=== PATIENT | male | born 1950 | race American Indian/Alaskan Native ===

== ENCOUNTER 2016-12-11 11:21 | Emergency (ER) | payer MEDICAID ==
[2016-12-11 11:45] VITALS: BP 130/71
--- NOTE | 2016-12-11 16:12 | XRay Report ---
FINAL REPORT PROCEDURE: Left shoulder. TECHNIQUE: Three views. HISTORY: Shoulder injury. COMPARISON: No prior studies are available for comparison. FINDINGS: The bones appear intact without fracture or dislocation. The joint spaces appear normal. The soft tissues are unremarkable. IMPRESSION: Normal study.
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
== END 2016-12-11 16:57 | disposition home or self-care (01) ==
LOC: ED 11:21
DX: M25.512 Pain in left shoulder (principal); M62.838 Other muscle spasm; F17.200 Nicotine dependence, unspecified, uncomplicated

== ENCOUNTER 2020-11-16 12:44 | Inpatient (IN) | payer MEDICARE, MEDICAID ==
[2020-11-16] MEDS ORDERED: diphenhydrAMINE 50 MG/ML VIAL IV ONE (16:18)
[2020-11-16] MEDS ORDERED: METOCLOPRAMIDE 10 MG/2 ML INJ IV ONE (16:18)
--- NOTE | 2020-11-16 17:52 | Emergency Department Report ---
ED Abdominal Pain HPI - General Chief Complaint: Abdominal Pain Stated Complaint: PAIN Time Seen by Provider: 11/16/20 16:17 Source: patient Mode of arrival: Ambulatory Limitations: No Limitations - History of Present Illness Initial Comments: This is a 70-year-old male nontoxic, well nourished in appearance, no acute signs of distress presents to the ED with c/o of nausea, constipation, dysuria, unable to urinate, and left flank pain x several days. Stated has radiation to left upper abdomen area. Patient denies any vomiting. Patient describes flank/abdomen pain as cramping and aching with level of 8/10. Patient denies chest pain, short of breath, fever, hemoptysis, blood in stool, chills, headache, stiff neck, numbness or tingling. Patient denies any diarrhea. Denies any blood in stool. Patient denies any recent travels. Patient denies any allergies. MD Complaint: abdominal pain, flank pain -: days(s) Location: LLQ, L flank Radiation: none Migration to: no migration Severity: mild Severity scale (0 -10): 8 Quality: aching Consistency: constant Improves With: nothing Worsens With: nothing Associated Symptoms: nausea, constipation, dysuria. denies: vomiting, diarrhea, fever, chills, hematemesis, hematochezia, melena, hematuria, anorexia, syncope - Related Data Previous Rx's Medication Instructions Recorded Last Taken Type Ibuprofen 600 mg PO TID PRN #15 tablet 12/11/16 Unknown Rx methOCARBAMOL [Robaxin TAB] 500 mg PO Q6H PRN #20 tablet 12/11/16 Unknown Rx Erythromycin [Erythromycin Ophth 1 applic OS 6XD #3.5 g 03/02/18 Unknown Rx Oint] Allergies Allergy/AdvReac Type Severity Reaction Status Date / Time No Known Allergies Allergy Verified 12/11/16 11:46 ED Review of Systems ROS: Stated complaint: PAIN Other details as noted in HPI Comment: All other systems reviewed and negative Constitutional: denies: chills, fever Eyes: denies: eye pain, eye discharge, vision change ENT: denies: ear pain, throat pain Respiratory: denies: cough, shortness of breath, wheezing Cardiovascular: denies: chest pain, palpitations Endocrine: no symptoms reported Gastrointestinal: nausea, constipation. denies: abdominal pain, vomiting, diarrhea, hematemesis, melena, hematochezia Genitourinary: denies: urgency, dysuria Musculoskeletal: denies: back pain, joint swelling, arthralgia Skin: denies: rash, lesions Neurological: denies: headache, weakness, paresthesias Psychiatric: denies: anxiety, depression Hematological/Lymphatic: denies: easy bleeding, easy bruising ED Past Medical Hx - Past Medical History Previous Medical History?: No Additional medical history: deniesc - Surgical History Past Surgical History?: Yes Additional Surgical History: left leg - Social History Smoking Status: Never Smoker Substance Use Type: None - Medications Home Medications: Home Medications Medication Instructions Recorded Confirmed Last Taken Type Ibuprofen 600 mg PO TID PRN #15 tablet 12/11/16 Unknown Rx methOCARBAMOL [Robaxin TAB] 500 mg PO Q6H PRN #20 tablet 12/11/16 Unknown Rx Erythromycin [Erythromycin Ophth 1 applic OS 6XD #3.5 g 03/02/18 Unknown Rx Oint] ED Physical Exam - General Limitations: No Limitations General appearance: alert, in no apparent distress - Head Head exam: Present: atraumatic, normocephalic - Eye Eye exam: Present: normal appearance - ENT ENT exam: Present: normal exam - Neck Neck exam: Present: normal inspection, full ROM. Absent: lymphadenopathy - Respiratory Respiratory exam: Present: normal lung sounds bilaterally. Absent: respiratory distress, wheezes, rales, rhonchi, stridor, chest wall tenderness, accessory muscle use, decreased breath sounds, prolonged expiratory - Cardiovascular Cardiovascular Exam: Present: regular rate, normal rhythm, normal heart sounds. Absent: bradycardia, tachycardia, irregular rhythm, systolic murmur, diastolic murmur, rubs, gallop - GI/Abdominal GI/Abdominal exam: Present: distended, tenderness (LUQ), normal bowel sounds. Absent: guarding, rebound, rigid - Extremities Exam Extremities exam: Present: normal inspection, full ROM, normal capillary refill. Absent: tenderness - Back Exam Back exam: Present: normal inspection, full ROM, CVA tenderness (L). Absent: tenderness, CVA tenderness (R), muscle spasm, paraspinal tenderness, vertebral tenderness, rash noted - Neurological Exam Neurological exam: Present: alert, oriented X3, normal gait - Psychiatric Psychiatric exam: Present: normal affect, normal mood - Skin Skin exam: Present: warm, dry, intact, normal color. Absent: rash ED Course Vital Signs 11/16/20 13:59 Temperature 98.0 F Pulse Rate 66 Respiratory 18 Rate Blood Pressure 125/70 O2 Sat by Pulse 98 Oximetry - Reevaluation(s) Reevaluation #1: 11/16/20 17:52 Patient is speaking in full sentences with no signs of distress noted. Reevaluation #2: 11/16/20 17:53 Patient stated had a bowel movement and described it as "large" during ED visit. Reevaluation #3: 11/16/20 20:52 Patient was approached about possible DVT to left leg and stated that he did have left leg pain 3 days ago. Doppler ordered at this time. - Consultations Consultation #1: 11/16/20 20:53 Patient has been consulted with Maryjane Hayward about patient history, physical exam, and labs/imaging results and agrees to the ED plan of care and admission. Consultation #2: 11/16/20 21:39 Patient has been consulted with Dr. Morro Jensen (urologist) about patient history, physical exam, and labs/imaging results and agrees for admission and will see patient in the morning. Consultation #3: 11/16/20 21:43 Patient has been consulted with Dr. Harper (hospitalist) about patient history, physical exam, and labs/imaging results and accepts patient to services. ED Medical Decision Making - Lab Data Result diagrams: 11/16/20 21:33 11/16/20 21:33 Lab Results 11/16/20 11/16/20 11/16/20 Range/Units 16:38 16:38 Unknown WBC 8.4 (4.5-11.0) K/mm3 RBC 4.12 (3.65-5.03) M/mm3 Hgb 13.0 (11.8-15.2) gm/dl Hct 39.2 (35.5-45.6) % MCV 95 H (84-94) fl MCH 32 (28-32) pg MCHC 33 (32-34) % RDW 14.1 (13.2-15.2) % Plt Count 312 (140-440) K/mm3 Lymph % (Auto) 22.5 (13.4-35.0) % [place] % (Auto) 10.1 H (0.0-7.3) % Eos % (Auto) 3.4 (0.0-4.3) % Baso % (Auto) 0.7 (0.0-1.8) % Lymph # (Auto) 1.9 (1.2-5.4) K/mm3 [place] # (Auto) 0.8 (0.0-0.8) K/mm3 Eos # (Auto) 0.3 (0.0-0.4) K/mm3 Baso # (Auto) 0.1 (0.0-0.1) K/mm3 Seg Neutrophils % 63.3 (40.0-70.0) % Seg Neutrophils # 5.3 (1.8-7.7) K/mm3 Sodium 144 (137-145) mmol/L Potassium 5.0 (3.6-5.0) mmol/L Chloride 101.8 (98-107) mmol/L Carbon Dioxide 20 L (22-30) mmol/L Anion Gap 27 mmol/L BUN 143 H (9-20) mg/dL Creatinine 23.8 H (0.8-1.3) mg/dL Estimated GFR 2 ml/min BUN/Creatinine Ratio 6 % Glucose 94 (75-100) mg/dL Calcium 8.4 (8.4-10.2) mg/dL Total Bilirubin 0.20 (0.1-1.2) mg/dL AST 14 (5-40) units/L ALT 13 (7-56) units/L Alkaline Phosphatase 60 (35-129) units/L Total Protein 7.6 (6.3-8.2) g/dL Albumin 3.4 L (3.9-5) g/dL Albumin/Globulin Ratio 0.8 % Lipase 36 (13-60) units/L Urine Color Yellow (Yellow) Urine Turbidity Slightly-cloudy (Clear) Urine pH 6.0 (5.0-7.0) Ur Specific [place] 1.009 (1.003-1.030) Urine Protein <15 mg/dl (Negative) mg/dL Urine Glucose (UA) Neg (Negative) mg/dL Urine Ketones Neg (Negative) mg/dL Urine Blood Mod (Negative) Urine Nitrite Neg (Negative) Urine Bilirubin Neg (Negative) Urine Urobilinogen < 2.0 (<2.0) mg/dL Ur Leukocyte Esterase Sm (Negative) Urine WBC (Auto) 9.0 H (0.0-6.0) /HPF Urine RBC (Auto) 15.0 (0.0-6.0) /HPF U Epithel Cells (Auto) 2.0 (0-13.0) /HPF Urine Mucus Few /HPF - Radiology Data [facility] [address] [place] [address] Cat Scan Report Signed Patient: JOSÉ MONCADA MR#: [id number] : 1950 Acct:[id number] Age/Sex: 70 / M ADM Date: 11/16/20 Loc: ED Attending Dr: Ordering Physician: CHELSEY CROWELL NP Date of Service: 11/16/20 Procedure(s): CT abdomen pelvis w con Accession Number(s): [id number] cc: CHELSEY CROWELL NP CT ABDOMEN AND PELVIS WITH CONTRAST INDICATION / CLINICAL INFORMATION: left flank/abd pain. TECHNIQUE: Axial CT images were obtained through the abdomen and pelvis after IV contrast. All CT scans at this location are performed using CT dose reduction for ALARA by means of automated exposure control. COMPARISON: None available. FINDINGS: LOWER CHEST: No significant abnormality. LIVER: No significant abnormality. GALLBLADDER: No significant abnormality. BILE DUCTS: No significant abnormality. PANCREAS: No significant abnormality. SPLEEN: No significant abnormality. ADRENALS: No significant abnormality. RIGHT KIDNEY / URETER: Mild hydroureteronephrosis without obstructing stone. LEFT KIDNEY / URETER: Mild hydroureteronephrosis without obstructing stone. STOMACH / SMALL BOWEL: No significant abnormality. COLON: No significant abnormality. APPENDIX: No significant abnormality. PERITONEUM: No free fluid. No free air. No fluid collection. LYMPH NODES: No significant adenopathy. AORTA / ARTERIES: Mild atherosclerotic calcification without acute abnormality. IVC / VEINS: Heterogeneous density in the left common femoral and proximal superficial femoral vein with soft tissue edema of the left upper thigh possibly representing DVT. URINARY BLADDER: Markedly distended with the dome of the bladder extending into the lower abdomen. REPRODUCTIVE ORGANS: Prostate is enlarged. ADDITIONAL FINDINGS: None. SKELETAL SYSTEM: No significant abnormality. IMPRESSION: 1. No inflammatory process or bowel obstruction. No urinary tract stones. 2. Markedly distended urinary bladder with associated mild bilateral hydroureteronephrosis. Enlarged prostate may result in chronic bladder outlet obstruction. 3. Possible DVT in the left common femoral and superficial femoral veins. Dedicated left lower extremity venous Doppler ultrasound is recommended. Signer Name: Ligia Mcghee MD Signed: 11/16/2020 7:44 PM Workstation Name: [id number] Transcribed By: DT Dictated By: Terence Mcghee MD Electronically Authenticated By: Terence Mcghee MD Signed Date/Time: 11/16/201943 DD/ 36 TD/TT: - Medical Decision Making 70-year-old male that presents with left DVT and enlarged prostate with hydroureteronephrosis with outlet obstruction. Patient is stable and was examined by me. Perez cath ordered and RN notified to place Perez cath MARGO. Patient is notified of the labs and imaging results with no questions noted by the patient. Patient admitted with hospitalist. Consulted with attending and urologist which agrees to the ED plan of care and admission. At time of admission, the patient does not seem toxic or ill in appearance. No acute signs of distress noted. Patient agrees to admission treatment plan of care. No further questions noted by the patient. Critical care attestation.: If time is entered above; I have spent that time in minutes in the direct care o f this critically ill patient, excluding procedure time. ED Disposition Clinical Impression: Bladder outlet obstruction, Enlarged prostate, Hydroureteronephrosis, Acute renal insufficiency Left leg DVT Qualifiers: Affected thrombotic vein of extremity: femoral Chronicity: acute Qualified Code(s): I82.412 - Acute embolism and thrombosis of left femoral vein Disposition: ADMITTED INPATIENT Is pt being admited?: Yes Condition: Stable
[2020-11-16 17:57] LABS: Albumin 3.4 g/dL (3.9-5); Calcium 8.4 mg/dL (8.4-10.2)
[2020-11-16 17:58] LABS: Bilirubin,Urine NEG (Negative); Blood,Urine MOD (Negative); Color,Urine Yellow (Yellow); Mucus,Urine FEW /HPF; Protein,Urine <15 mg/dL mg/dL (Negative); Urobilinogen,Urine < 2.0 mg/dL (<2.0)
[2020-11-16 17:59] LABS: Basophils # (Auto) 0.1 K/mm3 (0.0-0.1); Basophils % (Auto) 0.7 % (0.0-1.8); Eosinophils # (Auto) 0.3 K/mm3 (0.0-0.4); Eosinophils % (Auto) 3.4 % (0.0-4.3); Hematocrit 39.2 % (35.5-45.6); Lymphocytes # (Auto) 1.9 K/mm3 (1.2-5.4); Lymphocytes % (Auto) 22.5 % (13.4-35.0); Mean Corpuscular HGB Conc 33 % (32-34); Mean Corpuscular Volume 95 fl (84-94); Monocytes # (Auto) 0.8 K/mm3 (0.0-0.8); Monocytes % (Auto) 10.1 % (0.0-7.3); Platelet Count 312 K/mm3 (140-440); Red Blood Count 4.12 M/mm3 (3.65-5.03); Red Cell Distribution Width 14.1 % (13.2-15.2)
--- NOTE | 2020-11-16 19:49 | Cat Scan Report ---
CT ABDOMEN AND PELVIS WITH CONTRAST INDICATION / CLINICAL INFORMATION: left flank/abd pain. TECHNIQUE: Axial CT images were obtained through the abdomen and pelvis after IV contrast. All CT sc ans at this location are performed using CT dose reduction for ALARA by means of automated exposure c ontrol. COMPARISON: None available. FINDINGS: LOWER CHEST: No significant abnormality. LIVER: No significant abnormality. GALLBLADDER: No significant abnormality. BILE DUCTS: No significant abnormality. PANCREAS: No significant abnormality. SPLEEN: No significant abnormality. ADRENALS: No significant abnormality. RIGHT KIDNEY / URETER: Mild hydroureteronephrosis without obstructing stone. LEFT KIDNEY / URETER: Mild hydroureteronephrosis without obstructing stone. STOMACH / SMALL BOWEL: No significant abnormality. COLON: No significant abnormality. APPENDIX: No significant abnormality. PERITONEUM: No free fluid. No free air. No fluid collection. LYMPH NODES: No significant adenopathy. AORTA / ARTERIES: Mild atherosclerotic calcification without acute abnormality. IVC / VEINS: Heterogeneous density in the left common femoral and proximal superficial femoral vein w ith soft tissue edema of the left upper thigh possibly representing DVT. URINARY BLADDER: Markedly distended with the dome of the bladder extending into the lower abdomen. REPRODUCTIVE ORGANS: Prostate is enlarged. ADDITIONAL FINDINGS: None. SKELETAL SYSTEM: No significant abnormality. IMPRESSION: 1. No inflammatory process or bowel obstruction. No urinary tract stones. 2. Markedly distended urinary bladder with associated mild bilateral hydroureteronephrosis. Enlarged prostate may result in chronic bladder outlet obstruction. 3. Possible DVT in the left common femoral and superficial femoral veins. Dedicated left lower extrem ity venous Doppler ultrasound is recommended. Signer Name: Ligia Mcghee MD Signed: 11/16/2020 7:44 PM Workstation Name: [id number]
[2020-11-16] MEDS ORDERED: RIVAROXABAN 20 MG TAB PO NR (21:27)
--- NOTE | 2020-11-16 21:42 | Vascular Lab Report ---
DUPLEX DOPPLER LOWER EXTREMITY VEINS, LEFT INDICATION / CLINICAL INFORMATION: abnormal CT with possible DVT. TECHNIQUE: Duplex doppler imaging was performed through the veins of the left lower extremity using v enous compression and other maneuvers. COMPARISON: The abdomen and pelvis earlier same day FINDINGS: LEFT COMMON FEMORAL VEIN: Negative. LEFT FEMORAL VEIN: Positive LEFT POPLITEAL VEIN: Positive LEFT CALF VEINS: Negative. ADDITIONAL FINDINGS: DVT also noted within the deep femoral vein.. IMPRESSION: Deep venous thrombosis involving the left femoral vein, popliteal vein and deep femoral vein. Signer Name: Bryce Manjarrez MD Signed: 11/16/2020 9:38 PM Workstation Name: [id number]
[2020-11-16] MEDS ORDERED: MORPHINE 2 MG/1 ML INJ IV PRN (21:45)
[2020-11-16] MEDS ORDERED: ACETAMINOPHEN 325 MG TAB PO PRN (21:45)
[2020-11-16] MEDS ORDERED: MAGNESIUM HYDROXIDE (MOM) ORAL LIQD UDC PO PRN (21:45)
[2020-11-16] MEDS ORDERED: ONDANSETRON 4 MG/2 ML INJ IV PRN (21:45)
[2020-11-16] MEDS ORDERED: MORPHINE 4 MG/1 ML INJ IV PRN (21:45)
--- NOTE | 2020-11-16 21:59 | History and Physical Report ---
History of Present Illness Date of examination: 11/16/20 Date of admission: 11/16/2020 Chief complaint: Nausea Dysuria Left flank pain History of present illness: 70-year-old -T[place] male with no significant past medical history presents to the emergency room today complaining of nausea, constipation, inability to urinate and left flank pain which has been ongoing for about 1 week. He denies any vomiting, no fever or chills, no chest pain or shortness of breath, denies any hematuria and denies any dysuria. Patient states that his flank pain is crampy and radiates towards the upper abdomen. Pain on a scale of 10 is about 8/10. Patient also indicates that he has been having some swelling in his left lower extremity with some pain. Denies any injury. Denies any long distance travel. However he states that he has not been quite as active over the past few weeks and just goes to the restroom and back to his bedroom on most occasions. Patient denies any sick contacts and no recent travel. Denies any contact with anyone with COVID-19. Patient is fully vaccinated against COVID-19. Upon arrival in the emergency room today patient was said to be unable to urinate and attempts were made to insert a Perez catheter with some difficulty. Work-up in the emergency room today, pertinent positives are that of elevated BUN and creatinine of 143 and 23.8 respectively. Urinalysis showed small leukocyte esterase with WBC of 9. Ultrasound Doppler of the left lower extremity reveals: Deep venous thrombosis involving the left femoral vein, popliteal vein and deep femoral vein. CT of the abdomen and pelvis reveals:1. No inflammatory process or bowel obstruction. No urinary tract stones. 2. Markedly distended urinary bladder with associated mild bilateral hydroureteronephrosis. Enlarged prostate may result in chronic bladder outlet obstruction. 3. Possible DVT in the left common femoral and superficial femoral veins. Dedicated left lower extremity venous Doppler ultrasound is recommended. Urologist team () was consulted by the ER physician regarding the bladder outlet obstruction and resultant hydroureteronephrosis and recommendation was to have Perez catheter inserted and patient will be promptly evaluated in the a.m. Patient being admitted with multiple medical problems including bladder outlet obstruction, acute kidney injury, DVT of the left lower extremity and bilateral hydroureteronephrosis. Past History Past Medical History: No medical history Past Surgical History: Other (Left leg surgery) Social history: no significant social history Family history: no significant family history Medications and Allergies Allergies Allergy/AdvReac Type Severity Reaction Status Date / Time No Known Allergies Allergy Verified 12/11/16 11:46 Home Medications Medication Instructions Recorded Confirmed Last Taken Type Ibuprofen 600 mg PO TID PRN #15 tablet 12/11/16 Unknown Rx methOCARBAMOL [Robaxin TAB] 500 mg PO Q6H PRN #20 tablet 12/11/16 Unknown Rx Erythromycin [Erythromycin Ophth 1 applic OS 6XD #3.5 g 03/02/18 Unknown Rx Oint] Active Meds: Active Medications Acetaminophen (Acetaminophen 325 Mg Tab) 650 mg PO Q4H PRN PRN Reason: Pain MILD(1-3)/Fever >100.5/WARD Sodium Chloride (Nacl 0.9% 1000 Ml) 1,000 mls @ 75 mls/hr IV DIRECT ELIZABETH Levofloxacin/Dextrose (Levaquin 500mg/100ml) 500 mg in 100 mls @ 100 mls/hr IV Q24H ELIZABETH; Protocol Magnesium Hydroxide (Magnesium Hydroxide (Mom) Oral Liqd Udc) 30 ml PO Q4H PRN PRN Reason: Constipation Morphine Sulfate (Morphine 2 Mg/1 Ml Inj) 2 mg IV Q4H PRN PRN Reason: Pain, Moderate (4-6) Morphine Sulfate (Morphine 4 Mg/1 Ml Inj) 4 mg IV Q4H PRN PRN Reason: Pain , Severe (7-10) Ondansetron HCl (Ondansetron 4 Mg/2 Ml Inj) 4 mg IV Q8H PRN PRN Reason: Nausea And Vomiting Sodium Chloride (Sodium Chloride 0.9% 10 Ml Flush Syringe) 10 ml IV BID ELIZABETH Sodium Chloride (Sodium Chloride 0.9% 10 Ml Flush Syringe) 10 ml IV PRN PRN PRN Reason: LINE FLUSH Review of Systems Constitutional: no fever, no chills, no fatigue Ears, nose, mouth and throat: no nasal congestion, no sore throat Cardiovascular: no chest pain, no palpitations Respiratory: no cough, no shortness of breath Gastrointestinal: nausea, constipation, no abdominal pain, no vomiting, no diarrhea Genitourinary Male: dysuria, flank pain (Left flank pain), no urinary frequency Musculoskeletal: no neck pain, no low back pain Integumentary: no rash, no pruritis Neurological: no headaches, no confusion Psychiatric: no anxiety, no depression Endocrine: no polydipsia, no polyuria, no nocturia Exam - Constitutional Vitals: Temp Pulse Resp BP Pulse Ox 98.0 F 66 18 125/70 98 11/16/20 13:59 11/16/20 13:59 11/16/20 13:59 11/16/20 13:59 11/16/20 13:59 General appearance: Present: no acute distress, well-nourished - EENT Eyes: Present: PERRL, EOM intact. Absent: scleral icterus ENT: hearing intact, clear oral mucosa, dentition normal - Neck Neck: Present: supple, normal ROM - Respiratory Respiratory effort: normal Respiratory: bilateral: CTA - Cardiovascular Rhythm: regular Heart Sounds: Present: S1 & S2. Absent: gallop, systolic murmur, diastolic murmur, rub, click - Extremities Extremities: no ischemia, pulses intact, pulses symmetrical, No edema, normal temperature, normal color, Full ROM Peripheral Pulses: within normal limits - Abdominal General gastrointestinal: Present: soft, tender (Mild left costovertebral angle tenderness), non-distended, normal bowel sounds. Absent: mass - Integumentary Integumentary: Present: clear, warm, dry, normal turgor. Absent: rash - Musculoskeletal Musculoskeletal: strength equal bilaterally - Psychiatric Psychiatric: appropriate mood/affect, intact judgment & insight, memory intact, cooperative - Neurologic Neurologic: CNII-XII intact, no focal deficits, moves all extremities Results - Labs CBC & Chem 7: 11/16/20 21:33 11/16/20 21:33 Labs: Abnormal lab results 11/16/20 11/16/20 11/16/20 Range/Units 16:38 16:38 Unknown MCV 95 H (84-94) fl [place] % (Auto) 10.1 H (0.0-7.3) % Carbon Dioxide 20 L (22-30) mmol/L BUN 143 H (9-20) mg/dL Creatinine 23.8 H (0.8-1.3) mg/dL Albumin 3.4 L (3.9-5) g/dL Urine WBC (Auto) 9.0 H (0.0-6.0) /HPF Assessment and Plan - Patient Problems (1) Bladder outlet obstruction Current Visit: Yes Status: Acute Plan to address problem: Secondary to enlarged prostate. Patient will have Perez catheter inserted and will monitor inputs and output. Consult has been placed to urology for evaluation in the a.m. (2) Hydroureteronephrosis Current Visit: Yes Status: Acute Plan to address problem: Probably secondary to the bladder outlet obstruction. We await further recommendations from urologist. (3) Acute renal insufficiency Current Visit: Yes Status: Acute Plan to address problem: Possibly secondary to the bladder outlet obstruction. However consult will be placed to nephrology for further evaluation and recommendations. (4) Left leg DVT Current Visit: Yes Status: Acute Qualifiers: Affected thrombotic vein of extremity: femoral Chronicity: acute Qualified Code(s): I82.412 - Acute embolism and thrombosis of left femoral vein Plan to address problem: Patient started on anticoagulation with heparin drip. We will monitor PTT/PT/INR as indicated. (5) DVT prophylaxis Current Visit: Yes Status: Acute Plan to address problem: Patient currently on anticoagulation with heparin. (6) Full code status Current Visit: Yes Status: Acute Plan to address problem: Patient is full code
[2020-11-16 22:40] LABS: Hemoglobin 12.7 gm/dl (11.8-15.2); Mean Corpuscular HGB Conc 34 % (32-34); Mean Corpuscular Volume 96 fl (84-94); Platelet Count 260 K/mm3 (140-440); Red Blood Count 3.97 M/mm3 (3.65-5.03); Red Cell Distribution Width 14.6 % (13.2-15.2)
[2020-11-16 23:03] LABS: INR 1.24 (0.87-1.13)
[2020-11-16 23:04] LABS: Partial Thromboplastin Time 31.2 Sec. (24.2-36.6)
[2020-11-16] MEDS ORDERED: HEPARIN 10,000 UNITS/10 ML VIAL IV ONE (23:19)
[2020-11-16] MEDS ORDERED: HEPARIN 10,000 UNITS/10 ML VIAL IV PRN (23:19)
[2020-11-17] MEDS: HEPARIN/ 0.45% NACL DRIP 25,000 UNIT/500 ML BAG IV SCH ×2 (02:50→22:18)
[2020-11-17] MEDS: SODIUM CHLORIDE 0.9% 1000 ML 1,000 ML IV SCH (02:51)
[2020-11-17 05:05] LABS: Basophils # (Auto) 0.1 K/mm3 (0.0-0.1); Basophils % (Auto) 0.9 % (0.0-1.8); Eosinophils # (Auto) 0.3 K/mm3 (0.0-0.4); Eosinophils % (Auto) 3.4 % (0.0-4.3); Hematocrit 40.5 % (35.5-45.6); Hemoglobin 13.4 gm/dl (11.8-15.2); Lymphocytes # (Auto) 1.9 K/mm3 (1.2-5.4); Lymphocytes % (Auto) 23.4 % (13.4-35.0); Mean Corpuscular HGB Conc 33 % (32-34); Mean Corpuscular Volume 95 fl (84-94); Monocytes # (Auto) 0.8 K/mm3 (0.0-0.8); Monocytes % (Auto) 10.7 % (0.0-7.3); Platelet Count 329 K/mm3 (140-440); Red Blood Count 4.27 M/mm3 (3.65-5.03); Red Cell Distribution Width 14.5 % (13.2-15.2)
[2020-11-17 05:26] LABS: Calcium 8.6 mg/dL (8.4-10.2)
--- NOTE | 2020-11-17 12:07 | Progress Note ---
Assessment and Plan aur needs osborne watch for post obs diuresis home with osborne Subjective Date of service: 11/17/20 Principal diagnosis: aur Objective - Constitutional Vitals: Vital Signs - 12hr 11/17/20 11/17/20 03:07 10:14 Temperature 98.1 F Pulse Rate 82 74 Respiratory 17 12 Rate Blood Pressure 136/82 Blood Pressure 145/68 [Left] O2 Sat by Pulse 97 98 Oximetry General appearance: Present: no acute distress - Labs CBC & Chem 7: 11/17/20 04:47 11/17/20 04:47 Labs: Abnormal lab results 11/16/20 11/16/20 11/16/20 Range/Units 16:38 16:38 21:33 MCV 95 H 96 H (84-94) fl [place] % (Auto) 10.1 H (0.0-7.3) % PT (12.2-14.9) Sec. INR (0.87-1.13) Chloride (98-107) mmol/L Carbon Dioxide 20 L (22-30) mmol/L BUN 143 H (9-20) mg/dL Creatinine 23.8 H (0.8-1.3) mg/dL Glucose (75-100) mg/dL Albumin 3.4 L (3.9-5) g/dL Urine WBC (Auto) (0.0-6.0) /HPF 11/16/20 11/16/20 11/16/20 Range/Units 21:33 21:33 Unknown MCV (84-94) fl [place] % (Auto) (0.0-7.3) % PT 16.1 H (12.2-14.9) Sec. INR 1.24 H (0.87-1.13) Chloride (98-107) mmol/L Carbon Dioxide (22-30) mmol/L BUN (9-20) mg/dL Creatinine 24.4 H (0.8-1.3) mg/dL Glucose (75-100) mg/dL Albumin (3.9-5) g/dL Urine WBC (Auto) 9.0 H (0.0-6.0) /HPF 11/17/20 11/17/20 Range/Units 04:47 04:47 MCV 95 H (84-94) fl [place] % (Auto) 10.7 H (0.0-7.3) % PT (12.2-14.9) Sec. INR (0.87-1.13) Chloride 107.5 H (98-107) mmol/L Carbon Dioxide (22-30) mmol/L BUN 110 H (9-20) mg/dL Creatinine 14.9 H (0.8-1.3) mg/dL Glucose 105 H (75-100) mg/dL Albumin (3.9-5) g/dL Urine WBC (Auto) (0.0-6.0) /HPF Medications & Allergies - Medications Allergies/Adverse Reactions: Allergies No Known Allergies Allergy (Verified 11/17/20 10:12) Home Medications: Home Medications Medication Instructions Recorded Confirmed Last Taken Type Ibuprofen 600 mg PO TID PRN #15 tablet 12/11/16 Unknown Rx methOCARBAMOL [Robaxin TAB] 500 mg PO Q6H PRN #20 tablet 12/11/16 Unknown Rx Erythromycin [Erythromycin Ophth 1 applic OS 6XD #3.5 g 03/02/18 Unknown Rx Oint] Active Medications: Generic Name Dose Route Start Last Admin Trade Name Hunterq PRN Reason Stop Dose Admin Acetaminophen 650 mg 11/16/20 21:45 Acetaminophen 325 Mg Tab PO Q4H PRN Pain MILD(1-3)/Fever >100.5/WARD Heparin Sodium (Porcine) 3,700 unit 11/16/20 23:19 Heparin 10,000 Units/10 Ml Vial 40 unit/kg (3700 unit) IV Q6H PRN Anti-Xa Assay < 0.1 units/ml Sodium Chloride 1,000 mls @ 75 mls/hr 11/16/20 21:45 11/17/20 02:51 Nacl 0.9% 1000 Ml IV 75 mls/hr DIRECT ELIZABETH Administration Heparin Sodium/Sodium Chloride 25,000 unit in 500 mls @ 27 mls/hr 11/16/20 23:45 11/17/20 02:50 Heparin/ 0.45% Nacl-25,000 Unit/500 Ml IV 1,350 units/hr TITR ELIZABETH 27 mls/hr Administration Protocol 1,350 UNITS/HR Levofloxacin/Dextrose 500 mg in 100 mls @ 100 mls/hr 11/17/20 22:00 Levaquin 500mg/100ml IV Q48H ELIZABETH Protocol Magnesium Hydroxide 30 ml 11/16/20 21:45 Magnesium Hydroxide (Mom) Oral Liqd Udc PO Q4H PRN Constipation Morphine Sulfate 2 mg 11/16/20 21:45 Morphine 2 Mg/1 Ml Inj IV Q4H PRN Pain, Moderate (4-6) Morphine Sulfate 4 mg 11/16/20 21:45 Morphine 4 Mg/1 Ml Inj IV Q4H PRN Pain , Severe (7-10) Ondansetron HCl 4 mg 11/16/20 21:45 Ondansetron 4 Mg/2 Ml Inj IV Q8H PRN Nausea And Vomiting Sodium Chloride 10 ml 11/16/20 22:00 11/17/20 02:51 Sodium Chloride 0.9% 10 Ml Flush Syringe IV 10 ml BID ELIZABETH Administration Sodium Chloride 10 ml 11/16/20 21:45 Sodium Chloride 0.9% 10 Ml Flush Syringe IV PRN PRN LINE FLUSH
--- NOTE | 2020-11-17 18:43 | Progress Note ---
Assessment and Plan - Patient Problems (1) Acute renal insufficiency Current Visit: Yes Status: Acute Plan to address problem: Secondary to obstructive uropathy and enlarged prostate. Has already began resolving after placement of Perez catheter. Appreciate urology input. Continue empiric antibiotics for infection. Monitor white count Monitor culture data Patient will be discharged home with Perez. (2) Bladder outlet obstruction Current Visit: Yes Status: Acute Plan to address problem: Secondary to enlarged prostate. Continue antibiotics will change to p.o. antibiotics and anticipated discharge. Patient will go home with Perez follow with urology outpatient. Pain control and supportive care (3) DVT prophylaxis Current Visit: Yes Status: Acute (4) Enlarged prostate Current Visit: Yes Status: Acute Plan to address problem: May require tamsulosin. Outpatient urology following. Flomax. (5) Hydroureteronephrosis Current Visit: Yes Status: Acute (6) Left leg DVT Current Visit: Yes Status: Acute Qualifiers: Affected thrombotic vein of extremity: femoral Chronicity: acute Qualified Code(s): I82.412 - Acute embolism and thrombosis of left femoral vein Plan to address problem: Left leg DVT secondary to sedentary lifestyle. Place patient on Eliquis for potential discharge. Subjective Date of service: 11/17/20 Principal diagnosis: 1. Acute renal failure #2 obstructive uropathy #3 DVT Interval history: 70-year-old male presented with a chief complaint of nausea vomiting constipation. Patient also had a complaint right flank pain with dysuria x1 week. Patient describes pain is 8 out of 10. Upon work-up in ED patient found to have acute renal failure with a BUN/creatinine of 143/23. Patient had CT scan which showed marked dilated urinary bladder with bilateral hydronephrosis secondary to enlarged prostate. Patient had ultrasound which showed DVT left femoral vein superficial popliteal vein and deep femoral vein.. At present patient's pain fairly well controlled resting comfortably in chair. With legs elevated. Patient admitted for treatment of DVT with anticoagulation and also work-up for acute kidney injury bilateral hydronephrosis secondary to obstructive uropathy. Objective - Constitutional Vitals: Vital Signs - 12hr 11/17/20 11/17/20 10:14 14:03 Temperature 98.1 F 98.6 F Pulse Rate 74 70 Respiratory 12 18 Rate Blood Pressure 136/82 124/58 O2 Sat by Pulse 98 98 Oximetry General appearance: Present: no acute distress, well-nourished - EENT Eyes: PERRL, EOM intact ENT: hearing intact, clear oral mucosa Ears: bilateral: normal - Neck Neck: supple, normal ROM - Respiratory Respiratory effort: normal Respiratory: bilateral: CTA - Breasts Breasts: normal - Cardiovascular Rhythm: regular Heart Sounds: Present: S1 & S2. Absent: gallop, rub Extremities: pulses intact, No edema, normal color, Full ROM Extremity abnormal: edema, other (Bilateral edema but left) - Gastrointestinal General gastrointestinal: Present: soft, non-tender, non-distended, normal bowel sounds - Genitourinary Male genitourinary: normal - Integumentary Integumentary: clear, warm, dry - Musculoskeletal Musculoskeletal: strength equal bilaterally, other (Patient does have some significant flank pain is also pain with movement. Resolving CVA tenderness.) - Neurologic Neurologic: moves all extremities - Psychiatric Psychiatric: memory intact, appropriate mood/affect, intact judgment & insight - Labs CBC & Chem 7: 11/17/20 04:47 11/17/20 04:47 Labs: Abnormal lab results 11/16/20 11/16/20 11/16/20 Range/Units 21:33 21:33 21:33 MCV 96 H (84-94) fl [place] % (Auto) (0.0-7.3) % PT 16.1 H (12.2-14.9) Sec. INR 1.24 H (0.87-1.13) Heparin Anti-Xa Level (0.3-0.7) U.I./ml Chloride (98-107) mmol/L BUN (9-20) mg/dL Creatinine 24.4 H (0.8-1.3) mg/dL Glucose (75-100) mg/dL 11/17/20 11/17/20 11/17/20 Range/Units 04:47 04:47 14:17 MCV 95 H (84-94) fl [place] % (Auto) 10.7 H (0.0-7.3) % PT (12.2-14.9) Sec. INR (0.87-1.13) Heparin Anti-Xa Level 0.83 H (0.3-0.7) U.I./ml Chloride 107.5 H (98-107) mmol/L BUN 110 H (9-20) mg/dL Creatinine 14.9 H (0.8-1.3) mg/dL Glucose 105 H (75-100) mg/dL - Imaging and cardiology Chest x-ray: report reviewed, image reviewed Abdominal x-ray: report reviewed, image reviewed CT scan - abdomen: report reviewed, image reviewed US - abdomen: report reviewed, image reviewed
[2020-11-18] MEDS: SODIUM CHLORIDE 0.9% 1000 ML 1,000 ML IV SCH ×2 (02:19→20:37)
--- NOTE | 2020-11-18 02:35 | Consultation ---
DATE OF CONSULTATION: 11/17/2020 HISTORY OF PRESENT ILLNESS: The patient has been in the Emergency Room for about 24 hours. He is a 70-year-old gentleman with nausea, abdominal distention, left flank pain. He has bilateral hydronephrosis and creatinine that shows severe renal failure with hydronephrosis and the inability to void for 2-3 days. He has been constipated as well. He has not been to a doctor on a regular basis. PAST MEDICAL HISTORY: Some hypertension. ALLERGIES: Negative. SOCIAL HISTORY: Noncontributory. REVIEW OF SYSTEMS: Severe decrease in flow and inability to void for 3 days. PHYSICAL EXAMINATION: GENERAL: He is awake. He is in no distress. EYES: He has an opaque right eye that he cannot see from. ABDOMEN: Soft, nondistended. Perez is draining clear urine. GENITALIA: Mildly atrophic testis, uncircumcised. RECTAL: Digital rectal exam was difficult. He had to have a bowel movement, needs to be repeated with a PSA at a later date. IMPRESSION AND PLAN: Urinary retention, renal failure. We will allow the creatinine to improve over the next few days. He needs to go home with his catheter. He is going to need a better digital rectal exam and a PSA, which can be done as an outpatient, as the Perez catheter was just inserted last evening. He should be discharged with a Perez catheter. Follow up in the office. TID: [id number] RECEIPT: [id number] [place]
[2020-11-18 06:10] LABS: Hematocrit 34.4 % (35.5-45.6); Hemoglobin 11.9 gm/dl (11.8-15.2); Mean Corpuscular HGB Conc 34 % (32-34); Mean Corpuscular Volume 93 fl (84-94); Platelet Count 325 K/mm3 (140-440); Red Cell Distribution Width 14.3 % (13.2-15.2)
[2020-11-18] MEDS ORDERED: PNEUMOCOCCAL 23 Valent 0.5 ML VIAL IM ONE (12:00)
--- NOTE | 2020-11-18 12:14 | Progress Note ---
Assessment and Plan - Patient Problems (1) Acute renal insufficiency Current Visit: Yes Status: Acute Plan to address problem: Secondary to obstructive uropathy and enlarged prostate. Has already began resolving after placement of Perez catheter. Appreciate urology input. Continue empiric antibiotics for infection. Monitor white count Monitor culture data Patient will be discharged home with Perez. We will follow-up with Dr. Pineda urology. (2) Bladder outlet obstruction Current Visit: Yes Status: Acute Plan to address problem: Secondary to enlarged prostate. Resolving. Await follow-up creatinine today. If creatinine shows a consistent improvement. Patient may be discharged with Perez. Continue antibiotics will change to p.o. antibiotics and anticipated discharge. Patient will go home with Perez follow with urology outpatient. Pain control and supportive care (3) DVT prophylaxis Current Visit: Yes Status: Acute (4) Enlarged prostate Current Visit: Yes Status: Acute Plan to address problem: May require tamsulosin. Outpatient urology following. Flomax. (5) Hydroureteronephrosis Current Visit: Yes Status: Acute Plan to address problem: Improved after Perez catheter placement. (6) Left leg DVT Current Visit: Yes Status: Acute Qualifiers: Affected thrombotic vein of extremity: femoral Chronicity: acute Qualified Code(s): I82.412 - Acute embolism and thrombosis of left femoral vein Plan to address problem: Left leg DVT secondary to sedentary lifestyle. Place patient on Eliquis for potential discharge. Will change to Eliquis 5 mg twice daily today. Subjective Date of service: 11/18/20 Principal diagnosis: 1. Acute renal failure #2 obstructive uropathy #3 DVT Interval history: 70-year-old male presented with a chief complaint of nausea vomiting constipation. Patient also had a complaint right flank pain with dysuria x1 week. Patient describes pain is 8 out of 10. Upon work-up in ED patient found to have acute renal failure with a BUN/creatinine of 143/23. Patient had CT scan which showed marked dilated urinary bladder with bilateral hydronephrosis secondary to enlarged prostate. Patient had ultrasound which showed DVT left femoral vein superficial popliteal vein and deep femoral vein.. At present patient's pain fairly well controlled resting comfortably in chair. With legs elevated. Patient admitted for treatment of DVT with anticoagulation and also work-up for acute kidney injury bilateral hydronephrosis secondary to obstructive uropathy. 11/18/2020 Patient feels much better. No more nausea and vomiting. Flank pain much improved. Pain is now down to 1-2 and intermittent. Patient has had significant improvement in renal function. Await on creatinine. We will place patient on Eliquis 5 mg twice daily. Once we establish glomerular filtration rate adequate for anticoagulation. Objective - Constitutional Vitals: Vital Signs - 12hr 11/18/20 11/18/20 11/18/20 00:21 03:26 10:00 Temperature 98.5 F Pulse Rate 70 Respiratory 17 17 Rate Blood Pressure 168/69 144/65 O2 Sat by Pulse 100 100 Oximetry General appearance: Present: no acute distress, well-nourished - EENT Eyes: PERRL, EOM intact ENT: hearing intact, clear oral mucosa Ears: bilateral: normal - Neck Neck: supple, normal ROM - Respiratory Respiratory effort: normal Respiratory: bilateral: CTA - Breasts Breasts: normal - Cardiovascular Rhythm: regular Heart Sounds: Present: S1 & S2. Absent: gallop, rub Extremities: pulses intact, No edema, normal color, Full ROM Extremity abnormal: other (Left lower extremity swelling consistent with DVT.) - Gastrointestinal General gastrointestinal: Present: soft, non-tender, non-distended, normal bowel sounds - Genitourinary Male genitourinary: normal - Integumentary Integumentary: clear, warm, dry - Musculoskeletal Musculoskeletal: 1, strength equal bilaterally - Neurologic Neurologic: moves all extremities - Psychiatric Psychiatric: memory intact, appropriate mood/affect, intact judgment & insight - Labs CBC & Chem 7: 11/18/20 04:17 11/17/20 04:47 Labs: Abnormal lab results 11/17/20 11/18/20 Range/Units 14:17 04:17 Hct 34.4 L D (35.5-45.6) % Heparin Anti-Xa Level 0.83 H (0.3-0.7) U.I./ml
[2020-11-18] MEDS: HEPARIN/ 0.45% NACL DRIP 25,000 UNIT/500 ML BAG IV SCH (20:36)
[2020-11-19] MEDS: HEPARIN/ 0.45% NACL DRIP 25,000 UNIT/500 ML BAG IV SCH (05:19)
--- NOTE | 2020-11-19 07:36 | Discharge Summary ---
Providers - Providers Date of Admission: 11/17/20 11:00 Date of discharge: 11/19/20 Attending physician: NIKIA CEBALLOS 11/16/20 21:45 Consult to Physician [CONS] Routine Comment: Consulting Provider: CONSUELO MARCUS Physician Instructions: Reason For Exam: URINARY RETENTION Primary care physician: DRESS OPERATOR Hospitalization Reason for admission: obstructive uropathy Condition: Stable Hospital course: 10-year-old -Luxembourger male with no significant past medical history presents to the emergency room complaining of nausea, constipation, inability to urinate and left flank pain which had been ongoing for about 1 week. Upon arrival in the emergency room, patient was said to be unable to urinate and attempts were made to insert a Perez catheter with some difficulty. Work-up in the emergency room revealed elevated BUN and creatinine of [address] of the abdomen and pelvis reveals:1. No inflammatory process or bowel obstruction. No urinary tract stones. 2. Markedly distended urinary bladder with associated mild bilateral hydroureteronephrosis. Enlarged prostate may result in chronic bladder outlet obstruction. The patient was admitted with diagnosis of bladder outlet obstruction, obstructive uropathy, acute renal failure, and hydroureteronephrosis. Urologist team () was consulted by the ER physician regarding the bladder outlet obstruction and resultant hydroureteronephrosis and recommendation was to have Perez catheter inserted. Patient had catheter placed with dramatic improvement of the creatinine. Other complications during hospital stay included a DVT noted in the left common femoral and superficial femoral veins. Disposition: 01 HOME / SELF CARE / HOMELESS Final Discharge Diagnosis (Prints w/discharge instructions): Left femoral DVT, bladder outlet obstruction, enlarged prostate, bilateral hydroureteronephrosis, obstructive uropathy, acute renal failure Core Measure Documentation - Palliative Care Palliative Care/ Comfort Measures: Not Applicable - Core Measures Any of the following diagnoses?: DVT/PE - VTE Discharge Requirements Deep Vein Thrombosis/Pulmonary Embolism Present on Admission: Yes Has pt received <5 days of overlap therapy or INR<2.0: No (Eliquis) Anticoagulant overlap therapy prescribed at discharge: No Contraindication No Overlap Therapy order at DC: Medical Contraindication Exam - Constitutional Vitals: Temp Pulse Resp BP Pulse Ox 98.6 F 73 18 139/76 96 11/19/20 03:48 11/19/20 03:48 11/19/20 03:48 11/19/20 03:48 11/19/20 03:48 General appearance: Present: no acute distress, well-nourished - EENT Eyes: Present: PERRL ENT: hearing intact, clear oral mucosa - Neck Neck: Present: supple, normal ROM - Respiratory Respiratory effort: normal Respiratory: bilateral: CTA - Cardiovascular Heart Sounds: Present: S1 & S2. Absent: rub, click - Extremities Extremities: pulses symmetrical, No edema Peripheral Pulses: within normal limits - Abdominal General gastrointestinal: Present: soft, non-tender, non-distended, normal bowel sounds Male genitourinary: Present: normal - Integumentary Integumentary: Present: clear, warm, dry - Musculoskeletal Musculoskeletal: gait normal, strength equal bilaterally - Psychiatric Psychiatric: appropriate mood/affect, intact judgment & insight - Neurologic Neurologic: CNII-XII intact, moves all extremities Plan Activity: advance as tolerated Weight Bearing Status: Weight Bear as Tolerated Diet: regular Follow up with: PRIMARY CAREMD [Primary Care Provider] - 3-5 Days SOCORRO ERNANDEZ MD [Staff Physician] - 7 Days Prescriptions: Apixaban [Eliquis] 5 mg PO BID 180 Days #360 tablet
[2020-11-19 09:14] LABS: BUN/Creatinine Ratio 12; Blood Urea Nitrogen 13 mg/dL (9-20); Calcium 8.8 mg/dL (8.4-10.2); Hemolysis Index 1
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
[2020-11-19 12:31] VITALS: BP 138/68
[2020-11-19] MEDS ORDERED: APIXABAN 5 MG TAB PO SCH (14:00)
== END 2020-11-19 15:18 | disposition home or self-care (01) | DRG 699 ==
LOC: ED 12:44 → 4A 21:45 → OBSVTOIN 11-17 11:00 → 4A 11-17 22:07
PROVIDERS: ADMIT Internal Medicine Geriatric Medicine; ATTEND Hospitalist
DX: N32.0 Bladder-neck obstruction (principal); I82.412 Acute embolism and thrombosis of left femoral vein; N13.30 Unspecified hydronephrosis; N17.9 Acute kidney failure, unspecified; I82.432 Acute embolism and thrombosis of left popliteal vein; N40.0 Benign prostatic hyperplasia without lower urinary tract symptoms
CPT/HCPCS: 36415; 74177; 80048; 80053; 81001; 82565; 82962; 83690; 85014; 85018; 85025; 85027; 85520; 85610; 85730; 87086; 90732; 99406; G0378; J1200; J1644; J1956; J2765; J7030; Q9967

== ENCOUNTER 2021-04-05 07:35 | Observation (INO) | payer MEDICARE ==
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
[2021-03-31 11:12] LABS: Alanine Aminotransferase 15 units/L (7-56); Albumin 3.7 g/dL (3.9-5); BUN/Creatinine Ratio 14; Blood Urea Nitrogen 20 mg/dL (9-20); Calcium 9.3 mg/dL (8.4-10.2); Hemolysis Index 22
[2021-03-31 11:15] LABS: Hemoglobin 13.6 gm/dl (11.8-15.2); Mean Corpuscular HGB Conc 33 % (32-34); Mean Corpuscular Volume 92 fl (84-94); Platelet Count 262 K/mm3 (140-440); Red Blood Count 4.47 M/mm3 (3.65-5.03); Red Cell Distribution Width 13.7 % (13.2-15.2)
[~2021-04-05 07:35] MED LIST: LACTATED RINGERS 1,000 ML IV SCH
--- NOTE | 2021-04-05 09:22 | Anesthesia Day of Surgery ---
Anesthesia Day of Surgery - Day of Surgery Patient Examined: Yes Patient H&P Reviewed: Yes Patient is NPO: Yes
[2021-04-05] MEDS ORDERED: ONDANSETRON 4 MG/2 ML INJ IV PRN (09:23)
[2021-04-05] MEDS ORDERED: ceFAZolin/Water 2 GM/20 ML 2 GM/20 ML SYRINGE IV ONE (10:55)
[2021-04-05] MEDS ORDERED: LIDOCAINE MPF (2%) 20 MG/1 ML VIAL 5 ML ONE (11:11)
[2021-04-05] MEDS ORDERED: ONDANSETRON 4 MG/2 ML INJ ONE (11:11)
[2021-04-05] MEDS ORDERED: propofoL 200 MG/20 ML VIAL IV ONE (11:12)
[2021-04-05] MEDS ORDERED: fentaNYL 100 MCG/2 ML INJ ONE ×2 (11:12→12:36)
[2021-04-05] MEDS ORDERED: GENTAMICIN 160 MG in SODIUM CHLORIDE 0.9% 100 ML IV ONE (12:00)
[2021-04-05] MEDS ORDERED: SODIUM CHLORIDE 0.9% IRRIG SOLN 2000 ML IR ONE (12:38)
[2021-04-05] MEDS ORDERED: IOHEXOL 300 MG/ML 50ML IV ONE (12:39)
[2021-04-05] MEDS ORDERED: PHENYLEPHRINE/NS 1,000 MCG/10 ML SYRINGE (OR USE) IV ONE (12:53)
--- NOTE | 2021-04-05 13:09 | Post Operative Note ---
Date of procedure: 04/05/21 Pre-op diagnosis: aur Post-op diagnosis: same Findings: bph neurogenic Procedure: cysto turp spt Anesthesia: GETA Surgeon: SOCORRO ERNANDEZ Estimated blood loss: 50-100ml Pathology: list (prostate) Specimen disposition: to lab Condition: stable Disposition: PACU
[2021-04-05] MEDS ORDERED: D5W/0.45% NACL/KCL 20 MEQ 20 MEQ/1,000 ML BAG IV SCH (14:00)
[2021-04-05] MEDS ORDERED: NALOXONE 0.4 MG/1 ML INJ IV PRN (14:00)
[2021-04-05] MEDS ORDERED: ACETAMINOPHEN 325 MG TAB PO PRN (14:00)
[2021-04-05] MEDS ORDERED: traMADol 50 MG TAB PO PRN (14:00)
[2021-04-05] MEDS ORDERED: ONDANSETRON 4 MG ODT TAB PO PRN (14:00)
[2021-04-05] MEDS: HYDROmorphone 1 MG/1 ML INJ IV PRN ×2 (14:17→14:52)
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
--- NOTE | 2021-04-05 14:41 | Fluoroscopy Report ---
FL retrograde urography Technique: Intraoperative fluoroscopic guidance was provided. Fluoroscopy time: 0.2 minutes. Fluoroscopy images: 3. Findings/Impression: Intraoperative fluoroscopic guidance for right RPG, TURP, and placement of supra pubic catheter. Please see procedure report for further details. Signer Name: Alan Xiao MD Signed: 04/05/2021 2:35 PM Workstation Name: [id number]
[2021-04-05] MEDS ORDERED: LACTATED RINGERS 1,000 ML ONE (15:54)
--- NOTE | 2021-04-05 15:57 | Post Anesthesia Evaluation ---
- Post Anesthesia Evaluation Patient Participated: Yes Airway Patent: Yes Stable Respiratory Function: Yes Nausea/Vomiting: No Temp > 96.8F: Yes Pain Manageable: Yes Adequeate Hydration: Yes Anesthesia Complications: No Other Comments: OK for transfer to floor pending bed availability.
--- NOTE | 2021-04-05 16:03 | Progress Note ---
Assessment and Plan urine cleat spt draining home in am Subjective Date of service: 04/05/21 Principal diagnosis: aur Objective - Constitutional Vitals: Vital Signs - 12hr 04/05/21 04/05/21 04/05/21 08:28 08:30 13:22 Temperature 98 F 98 F 97.1 F L Pulse Rate 60 60 63 Respiratory 18 18 12 Rate Blood Pressure 131/56 131/56 148/92 O2 Sat by Pulse 98 98 100 Oximetry 04/05/21 04/05/21 04/05/21 13:27 13:32 13:45 Temperature Pulse Rate 56 L 57 L 60 Respiratory 15 14 12 Rate Blood Pressure 137/97 154/79 147/96 O2 Sat by Pulse 100 99 99 Oximetry 04/05/21 04/05/21 04/05/21 14:00 14:15 14:30 Temperature Pulse Rate 60 55 L 55 L Respiratory 15 14 14 Rate Blood Pressure 154/61 164/89 156/73 O2 Sat by Pulse 98 96 96 Oximetry 04/05/21 04/05/21 04/05/21 14:45 15:00 15:15 Temperature Pulse Rate 53 L 54 L 55 L Respiratory 12 13 12 Rate Blood Pressure 147/91 150/92 147/91 O2 Sat by Pulse 98 99 98 Oximetry 04/05/21 15:30 Temperature Pulse Rate 59 L Respiratory 13 Rate Blood Pressure 154/75 O2 Sat by Pulse 96 Oximetry General appearance: Present: no acute distress - Labs CBC & Chem 7: 03/31/21 00:01 03/31/21 00:01 Medications & Allergies - Medications Allergies/Adverse Reactions: Allergies No Known Allergies Allergy (Verified 11/17/20 10:12) Home Medications: Home Medications Medication Instructions Recorded Confirmed Last Taken Type No Known Home Medications [No 03/29/21 03/29/21 Unknown History Reported Home Medications] Active Medications: Generic Name Dose Route Start Last Admin Trade Name Freq PRN Reason Stop Dose Admin Acetaminophen 650 mg 04/05/21 14:00 Acetaminophen 325 Mg Tab PO Q4H PRN Pain MILD(1-3)/Fever >100.5/WARD Hydromorphone HCl 0.5 mg 04/05/21 09:30 04/05/21 14:52 Hydromorphone 1 Mg/1 Ml Inj IV 04/05/21 20:00 0.5 mg Q10MIN PRN Administration Pain , Severe (7-10) Potassium Chloride/Dextrose/Sod Cl 20 meq in 1,000 mls @ 125 mls/hr 04/05/21 14:00 D5w/0.45% Nacl/Kcl 20 Meq IV DIRECT ELIZABETH Cefazolin Sodium 1 gm in 50 mls @ 100 mls/hr 04/05/21 19:00 Ancef/Ns 1 Gm/50 Ml IV 04/06/21 19:29 Q8H EL[facility]ABETH Protocol Naloxone HCl 0.1 mg 04/05/21 14:00 Naloxone 0.4 Mg/1 Ml Inj IV Q2MIN PRN Res Rate </= 8 or 02 SAT < 92% Ondansetron HCl 4 mg 04/05/21 14:00 Ondansetron 4 Mg Odt Tab PO Q8H PRN Nausea And Vomiting Sodium Chloride 2,000 ml 04/05/21 14:00 Sodium Chloride 0.9% Irrig Soln 2000 Ml IR DIRECT ELIZABETH Tramadol HCl 50 mg 04/05/21 14:00 Tramadol 50 Mg Tab PO Q6H PRN Pain, Moderate (4-6)
[2021-04-05 19:37] LABS: Albumin 3.4 g/dL (3.9-5); Calcium 8.8 mg/dL (8.4-10.2)
[2021-04-05] MEDS: ceFAZolin/NS 1 GM/50 ML 1 GM/50 ML BAG IV SCH (19:44)
--- NOTE | 2021-04-05 20:40 | Consultation ---
History of Present Illness - Reason for Consult Consult date: 04/05/21 [facility] management Requesting physician: SOCORRO ERNANDEZ - History of Present Illness 70 YO Male with Obesity, DVT on therapeutic anticoagulation admitted for Urologic surgery. Consult placed by Dr. Ernandez for medical management. Patient seen and evaluated in his room. Patient resting comfortably. Patient denies fever, chills, chest pain, palpitation, productive cough, skin rash, to contact, noticeably to COVID-19. Patient denies pain. No reported nursing events. Past History Past Medical History: DVT, other (See HPI) Past Surgical History: Other (Urologic surgery) Social history: single. denies: smoking, alcohol abuse, prescription drug abuse Family history: hypertension Medications and Allergies Allergies Allergy/AdvReac Type Severity Reaction Status Date / Time No Known Allergies Allergy Verified 11/17/20 10:12 Home Medications Medication Instructions Recorded Confirmed Last Taken Type No Known Home Medications [No 03/29/21 03/29/21 Unknown History Reported Home Medications] Active Meds: Active Medications Acetaminophen (Acetaminophen 325 Mg Tab) 650 mg PO Q4H PRN PRN Reason: Pain MILD(1-3)/Fever >100.5/WARD Potassium Chloride/Dextrose/Sod Cl (D5w/0.45% Nacl/Kcl 20 Meq) 20 meq in 1,000 mls @ 125 mls/hr IV DIRECT ELIZABETH Cefazolin Sodium (Ancef/Ns 1 Gm/50 Ml) 1 gm in 50 mls @ 100 mls/hr IV Q8H [facility]ETH; Protocol Stop: 04/06/21 19:29 Last Admin: 04/05/21 19:44 Dose: 100 mls/hr Naloxone HCl (Naloxone 0.4 Mg/1 Ml Inj) 0.1 mg IV Q2MIN PRN PRN Reason: Res Rate </= 8 or 02 SAT < 92% Ondansetron HCl (Ondansetron 4 Mg Odt Tab) 4 mg PO Q8H PRN PRN Reason: Nausea And Vomiting Sodium Chloride (Sodium Chloride 0.9% Irrig Soln 2000 Ml) 2,000 ml IR DIRECT ELIZABETH Tramadol HCl (Tramadol 50 Mg Tab) 50 mg PO Q6H PRN PRN Reason: Pain, Moderate (4-6) Review of Systems Constitutional: no weight loss, no weight gain, no fever, no chills Ears, nose, mouth and throat: no ear pain, no tinnitis, no decreased hearing, no nose pain, no nasal congestion Cardiovascular: no chest pain, no palpitations, no edema Respiratory: no cough, no excessive sputum, no shortness of breath Gastrointestinal: no abdominal pain, no vomiting, no change in bowel habits, no hematemesis Genitourinary Male: no hematuria, no flank pain, no urinary frequency, no urinary hesitancy Rectal: no pain, no incontinence, no bleeding Musculoskeletal: no neck pain Integumentary: no rash, no pruritis, no wounds, no jaundice, no blisters Neurological: no transient paralysis, no paralysis, no weakness, no parathesias, no tingling, no seizures Psychiatric: no anxiety, no change in sleep habits, no hypersomnia Endocrine: no cold intolerance, no heat intolerance, no excessive thirst, no nocturia Hematologic/Lymphatic: no easy bruising, no easy bleeding Exam - Constitutional Vitals: Temp Pulse Resp BP Pulse Ox 98.7 F 65 13 141/72 98 04/05/21 19:45 04/05/21 19:45 04/05/21 19:45 04/05/21 19:45 04/05/21 19:45 General appearance: Present: mild distress, obese - EENT Eyes: Present: PERRL ENT: hearing intact, clear oral mucosa - Neck Neck: Present: supple, normal ROM - Respiratory Respiratory effort: normal Respiratory: bilateral: CTA - Cardiovascular Heart Sounds: Present: S1 & S2. Absent: rub, click - Extremities Extremities: pulses symmetrical, No edema Peripheral Pulses: within normal limits - Abdominal General gastrointestinal: Present: soft, non-tender, non-distended, normal bowel sounds Male genitourinary: Present: normal - Integumentary Integumentary: Present: clear, warm, dry - Musculoskeletal Musculoskeletal: gait normal, strength equal bilaterally - Psychiatric Psychiatric: appropriate mood/affect, intact judgment & insight - Neurologic Neurologic: CNII-XII intact, moves all extremities Results - Labs CBC & Chem 7: 03/31/21 00:01 04/05/21 19:00 Labs: Abnormal lab results 04/05/21 Range/Units 19:00 Creatinine 1.6 H (0.8-1.3) mg/dL Glucose 110 H (75-100) mg/dL Total Protein 6.0 L (6.3-8.2) g/dL Albumin 3.4 L (3.9-5) g/dL Assessment and Plan - Patient Problems (1) Obesity Current Visit: Yes Status: Acute Qualifiers: Body mass index: BMI 40.0-44.9 Plan to address problem: Balanced diet, increase physical activity at discharge, outpatient pulmonary follow-up for sleep study. (2) BPH (benign prostatic hyperplasia) Current Visit: Yes Status: Acute Plan to address problem: Supportive care, continue medical management. (3) History of DVT (deep vein thrombosis) Current Visit: Yes Status: Acute Plan to address problem: Resume therapeutic anticoagulation postoperatively.
[2021-04-06] MEDS: ceFAZolin/NS 1 GM/50 ML 1 GM/50 ML BAG IV SCH ×2 (03:27→11:56)
[2021-04-06 06:13] VITALS: BP 138/59
[2021-04-06] MEDS: SODIUM CHLORIDE 0.9% IRRIG SOLN 2000 ML IR SCH ×2 (07:37→07:38)
--- NOTE | 2021-04-06 09:25 | Discharge Summary ---
Short Stay Discharge Plan Activity: other (no straining ) Weight Bearing Status: Partial Weight Bearing Diet: low fat Special Instructions: other (catheter care ) Durable Medical Equipment Needed Upon Discharge: other (osborne and suprapubic tube ) Follow up with: PRIMARY CARE, [Primary Care Provider] - 7 Days SOCORRO ERNANDEZ MD [Staff Physician] - 04/12/21
--- NOTE | 2021-04-06 09:26 | Progress Note ---
Assessment and Plan both catheters working well clear home with both today Subjective Date of service: 04/06/21 Principal diagnosis: aur Objective - Constitutional Vitals: Vital Signs - 12hr 04/06/21 04/06/21 04/06/21 02: 04:44 07:58 Temperature 99.5 F Pulse Rate 92 H Respiratory 20 Rate Blood Pressure 138/59 O2 Sat by Pulse 100 94 99 Oximetry General appearance: Present: no acute distress, disheveled - Neck Neck: supple - Respiratory Respiratory effort: normal Extremities: no ischemia - Gastrointestinal General gastrointestinal: Present: soft - Labs CBC & Chem 7: 03/31/21 00:01 04/05/21 19:00 Labs: Abnormal lab results 04/05/21 Range/Units 19:00 Creatinine 1.6 H (0.8-1.3) mg/dL Glucose 110 H (75-100) mg/dL Total Protein 6.0 L (6.3-8.2) g/dL Albumin 3.4 L (3.9-5) g/dL Medications & Allergies - Medications Allergies/Adverse Reactions: Allergies No Known Allergies Allergy (Verified 11/17/20 10:12) Home Medications: Home Medications Medication Instructions Recorded Confirmed Last Taken Type No Known Home Medications [No 03/29/21 03/29/21 Unknown History Reported Home Medications] Active Medications: Generic Name Dose Route Start Last Admin Trade Name Freq PRN Reason Stop Dose Admin Acetaminophen 650 mg 04/05/21 14:00 Acetaminophen 325 Mg Tab PO Q4H PRN Pain MILD(1-3)/Fever >100.5/WARD Potassium Chloride/Dextrose/Sod Cl 20 meq in 1,000 mls @ 125 mls/hr 04/05/21 14:00 04/06/21 04:59 D5w/0.45% Nacl/Kcl 20 Meq IV 125 mls/hr DIRECT ELIZABETH Administration Cefazolin Sodium 1 gm in 50 mls @ 100 mls/hr 04/05/21 19:00 04/06/21 03:27 Ancef/Ns 1 Gm/50 Ml IV 04/06/21 19:29 100 mls/hr Q8H EL[facility]ETH Administration Protocol Naloxone HCl 0.1 mg 04/05/21 14:00 Naloxone 0.4 Mg/1 Ml Inj IV Q2MIN PRN Res Rate </= 8 or 02 SAT < 92% Ondansetron HCl 4 mg 04/05/21 14:00 Ondansetron 4 Mg Odt Tab PO Q8H PRN Nausea And Vomiting Sodium Chloride 2,000 ml 04/05/21 14:00 04/06/21 07:38 Sodium Chloride 0.9% Irrig Soln 2000 Ml IR 2,000 ml DIRECT ELIZABETH Administration Tramadol HCl 50 mg 04/05/21 14:00 Tramadol 50 Mg Tab PO Q6H PRN Pain, Moderate (4-6)
--- NOTE | 2021-04-06 13:02 | Progress Note ---
Subjective Date of service: 04/06/21 Principal diagnosis: aur Objective - Constitutional Vitals: Vital Signs - 12hr 04/06/21 04/06/21 04/06/21 02: 04:44 07:58 Temperature 99.5 F Pulse Rate 92 H Respiratory 20 Rate Blood Pressure 138/59 O2 Sat by Pulse 100 94 99 Oximetry - Labs CBC & Chem 7: 03/31/21 00:01 04/05/21 19:00 Labs: Abnormal lab results 04/05/21 Range/Units 19:00 Creatinine 1.6 H (0.8-1.3) mg/dL Glucose 110 H (75-100) mg/dL Total Protein 6.0 L (6.3-8.2) g/dL Albumin 3.4 L (3.9-5) g/dL
== END 2021-04-06 12:30 | disposition home or self-care (01) ==
LOC: OR 07:35 → 3A 13:05
PROVIDERS: ADMIT Urology; ATTEND Urology
DX: N40.1 Benign prostatic hyperplasia with lower urinary tract symptoms (principal); Z20.822 Contact with and (suspected) exposure to COVID-19; R33.8 Other retention of urine; N13.30 Unspecified hydronephrosis; E66.9 Obesity, unspecified; Z86.718 Personal history of other venous thrombosis and embolism; Z68.41 Body mass index [BMI] 40.0-44.9, adult
CPT/HCPCS: 36415; 52601; 74420; 80053; 85027; 86850; 86900; 86901; 88305; 96365; G0378; J0690; J1170; J1580; J2370; J2405; J2704; J3010; J3480; J3490; J7120; Q9967; U0003